=== PATIENT | female | born 2000 | race Caucasian/White ===

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

== ENCOUNTER 2019-08-28 12:38 | Emergency (ER) | payer OTHER, SELFPAY ==
[2019-08-28 12:52] VITALS: BP 151/81; PULSE 100; RESP 18; TEMP 37.2; O2SAT 99; BMI 32.8
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
[2019-08-28 13:00] VITALS: PULSE 100
[2019-08-28 13:21] VITALS: BP 125/78; PULSE 81; RESP 16; O2SAT 98
== END 2019-08-28 13:20 | disposition home or self-care (01) ==
PROVIDERS: Emergency Provider Nurse Practitioner
DX: S46.912A Strain of unspecified muscle, fascia and tendon at shoulder and upper arm level, left arm, initial encounter (principal); R21 Rash and other nonspecific skin eruption; V43.53XA Car driver injured in collision with pick-up truck in traffic accident, initial encounter; Y92.410 Unspecified street and highway as the place of occurrence of the external cause
CPT/HCPCS: 99282